=== PATIENT | female | born 1930 | race Caucasian/White ===

== ENCOUNTER 2018-02-23 04:11 | Inpatient (IN) ==
--- NOTE | 2018-02-16 09:46 | EKG Report ---
Test Performed on : 02/16/2018 09:30:55 AM Test Reason : PRE SURGERY Blood Pressure : / mmHG Vent. Rate : 070 BPM Atrial Rate : 070 BPM P-R Int : 138 ms QRS Dur : 076 ms QT Int : 412 ms P-R-T Axes : 039 010 014 degrees QTc Int : 444 ms Normal sinus rhythm. Normal ECG No previous ECGs available Confirmed by Adelita CAMACHO, [place] ([id number]) on 02/16/2018 5:35:47 PM
[2018-02-16 11:04] LABS: BASO# 0.05 X1000 (0.0-0.2); BASO% 0.6 % (0.0-0.8); EOS# 0.13 X1000 (0.0-0.7); EOS% 1.5 % (0.0-10.0); HEMATOCRIT 40.1 % (37.0-47.0); HEMOGLOBIN 13.1 g/dL (12.0-16.0); LYMPH# 2.86 X1000 (1.2-3.4); MCH 31.9 PG (27-31); MCHC 32.7 g/dL (33-37); MCV 97.6 FL (81-99); MONO# 1.01 X1000 (0.11-0.59); MPV 9.9 FL (7.4-10.4); NEUT# 4.35 X1000 (1.4-6.5); NEUT% 51.9 % (42.2-75.2); PLT 232 X1000 (130-400); RBC 4.11 XMIL (4.2-5.4); RDW 12.7 % (11.5-14.5)
[2018-02-16 11:09] LABS: INR 0.97; PROTIME 13.7 Seconds (11.0-16.0)
[2018-02-16 11:10] LABS: PTT 30.2 Seconds (22.3-41.8)
[2018-02-16 12:01] LABS: AGAP 12; BUN 19 mg/dL (8-22); CALCIUM 9.5 mg/dL (8.8-10.2); CHLORIDE 105 mmol/L (98-107); COSMO 290; CREATININE 0.8 mg/dL (0.5-0.9); ESTIMATED GFR > 60; GLUCOSE 112 mg/dL (70-104); POTASSIUM 4.6 mmol/L (3.5-5.1); SODIUM 144 mmol/L (136-145); TCO2 27 mmol/L (25-35)
[2018-02-23] MEDS ORDERED: REGLAN ONE (08:19)
[2018-02-23] MEDS ORDERED: COLACE ONE (08:19)
[2018-02-23] MEDS ORDERED: KEFZOL 1 GM/D5W 1 GM/50 ML IVPB ONE (08:19)
[2018-02-23] MEDS ORDERED: CELEBREX ONE (08:19)
[2018-02-23] MEDS ORDERED: LYRICA ONE (08:19)
[2018-02-23] MEDS ORDERED: PEPCID ONE (08:19)
[2018-02-23] MEDS ORDERED: LR 1,000 ML ONE (08:20)
[2018-02-23] MEDS ORDERED: QUELICIN (DOSE) ONE (08:37)
[2018-02-23] MEDS ORDERED: DIPRIVAN 1% ONE (08:37)
[2018-02-23] MEDS ORDERED: XYLOCAINE-MPF 2% ONE (08:37)
[2018-02-23] MEDS ORDERED: TORADOL ONE (09:34)
[2018-02-23] MEDS ORDERED: DURAMORPH ONE (09:34)
[2018-02-23] MEDS ORDERED: SENSORCAINE-MPF 0.5%/EPI 1:200,000 ONE (09:35)
[2018-02-23] MEDS ORDERED: SODIUM CHLORIDE 0.9% ONE (09:35)
[2018-02-23] MEDS ORDERED: NEOSPORIN G.U. IRRIGANT ONE (09:35)
[2018-02-23] MEDS ORDERED: EXPAREL 1.3% ONE (09:35)
[2018-02-23] MEDS ORDERED: CYKLOKAPRON 1,000 MG/NS 1,000 MG/100 ML IVPB ONE (09:35)
[2018-02-23] MEDS ORDERED: ROBINUL ONE ×2 (10:13→11:16)
[2018-02-23] MEDS ORDERED: OFIRMEV 1000 MG/ISOTONIC SOLN 1,000 MG/100 ML BOTTLE ONE (10:16)
[2018-02-23] MEDS ORDERED: DILAUDID ONE (10:34)
[2018-02-23] MEDS ORDERED: DECADRON ONE (10:43)
[2018-02-23 10:46] LABS: URINE SOURCE CATH
[2018-02-23 10:50] LABS: BILIRUBIN URINE NEGATIVE (NEGATIVE); BLOOD URINE NEGATIVE (NEGATIVE); COLOR STRAW; GLUCOSE URINE NEGATIVE (NEGATIVE); KETONE URINE NEGATIVE (NEGATIVE); LEUKOCYTES URINE NEGATIVE (NEGATIVE); NITRITE URINE NEGATIVE (NEGATIVE); PROTEIN URINE NEGATIVE (NEGATIVE); TURBIDITY URINE CLEAR (CLEAR); UROBILINOGEN URINE NORMAL (NORMAL)
[2018-02-23 10:51] LABS: UR EPITHELIAL CELLS <10 /HPF (<10); URINE BACTERIA NEGATIVE /HPF; URINE RBC <10 /HPF (<10); URINE WBC <10 /HPF (<10)
[2018-02-23] MEDS ORDERED: NEOSTIGMINE ONE (11:17)
[2018-02-23] MEDS ORDERED: ZOFRAN ONE (11:26)
--- NOTE | 2018-02-23 11:48 | OPERATIVE NOTE ---
PROCEDURE DATE: 02/23/2018 PREOPERATIVE DIAGNOSIS: Left glenohumeral arthritis. POSTOPERATIVE DIAGNOSIS: Left glenohumeral arthritis. PROCEDURE PERFORMED: Left reverse total shoulder arthroplasty with DePuy Delta XTEND size 12 press-fit stem, a 38+ 3 humeral cup, a 38 eccentric Glenosphere, and a standard Metaglene. SURGEON: Blayne Vang M.D. TAIL DOGGER: Caitie Parham. SECOND CLIENT ENGAGEMENT MANAGER: Carlos Tam. ANESTHESIA: General. IV FLUIDS: 1000 mL of lactated Ringer. ESTIMATED BLOOD LOSS: 200 mL. COMPLICATIONS: None. INDICATION: The patient is an 87-year-old female with a chronic history of pain and discomfort of the left shoulder. Continues with pain and discomfort despite appropriate nonoperative treatment. X-rays revealed significant degenerative arthritis, and recommendation is to proceed with left reverse total shoulder arthroplasty. This was offered. Risks and benefits of surgery were explained, including the risks of anesthesia, , bleeding, infection, failure to relieve pain, postoperative stiffness, nerve injury, blood clots, and other imponderables. All questions were answered, and the patient and family wish to proceed with surgery. DESCRIPTION OF PROCEDURE: The patient was taken to the operating room and placed supine on the operating table. Once adequate anesthesia was obtained, the patient was placed in semi-Méndez beach-chair position. The left shoulder was subsequently prepped and draped in the usual sterile fashion. A standard deltopectoral incision was made with a skin knife. Hemostasis was obtained using electrocautery. The deltopectoral interval was then developed. Partida retractors were placed to elevate the conjoined tendon as well as the deltoid, and the cephalic vein was retracted laterally with the deltoid. Approximately 1 cm medial to the subscapularis tendon insertion, it was released. A stay suture was placed medial to the release. After this had been performed, attention was then turned to the proximal humerus. A starting reamer was passed in the intramedullary canal. After adequate reaming had been conducted, an intramedullary guide with a proximal humeral cutting block was placed in position. The humeral head was resected. A protective disk was placed. Attention was turned to the glenoid. Circumferential dissection was performed with a deep knife. A guide was then placed in position to identify the position of the guide pin. This was then placed. Reaming was then conducted. The central hole was then dilated. The wound was copiously with antibiotic pulsatile lavage. A standard Metaglene was then placed. Two locking screws were placed and two nonlocking screws. Good purchase was obtained. A 38 eccentric Glenosphere was then placed with eccentricity placed inferiorly. Attention was then turned to the proximal humerus, where an intramedullary guide was placed in position, and the proximal humerus was then reamed. The wound was copiously irrigated with antibiotic pulsatile lavage. A size 12 press-fit stem was then placed and appeared to have good fit. Trial cup size was then determined to be 38+ 3, and had excellent stability and range of motion. Trial cup was removed. The wound was copiously irrigated once again. A 38+ 3 humeral cup was then placed. The shoulder was reduced, carried through range of motion, and had excellent stability and range of motion. Exparel was placed in the deep soft tissue. The wound was copiously irrigated once again. A #2 FiberWire was then used to repair the subscapularis tendon. The remaining portion of the Exparel was placed in the deep tissue as well as subcutaneous tissue. Final irrigation was then performed. A 2-0 Vicryl was then used to repair the subcutaneous tissue, followed by running 2-0 Prolene. Benzoin and Steri-Strips were applied. Adaptic, sterile gauze, ABD pad, and tape were applied to the left shoulder, followed by a shoulder immobilizer. All counts were correct, and the patient tolerated the procedure well and was transferred to the recovery room in stable condition. cc: Blayne Vang MD
[2018-02-23] MEDS ORDERED: MORPHINE ONE (12:19)
[2018-02-23] MEDS ORDERED: NS 1,000 ML ONE (12:35)
--- NOTE | 2018-02-23 12:38 | Diag Imaging Result Doc PS360 ---
EXAM: SHOULDER 1 VIEW LEFT 02/23/2018 HISTORY: L reverse total shoulder TECHNIQUE: AP portable at 1219 COMMENT: There is a total shoulder arthroplasty. There is no evidence of fracture or other acute bony abnormality. IMPRESSION: Postsurgical changes. Electronically signed by Juan Kennedy 02/23/2018 12:35 PM
[2018-02-23] MEDS ORDERED: AMBIEN PO PRN (13:04)
[2018-02-23] MEDS ORDERED: LEXAPRO PO PRN (13:04)
[2018-02-23] MEDS ORDERED: CENTRUM TABLET PO SCH (13:15)
[2018-02-23] MEDS ORDERED: OXY IR PO PRN ×2 (14:45)
[2018-02-23] MEDS: NS 1,000 ML IV SCH (14:45)
[2018-02-23] MEDS ORDERED: ZOFRAN PO PRN (14:45)
[2018-02-23] MEDS ORDERED: CYKLOKAPRON 1,000 MG in NS 100 ML IV ONE (16:00)
[2018-02-23] MEDS: KEFZOL 1 GM/D5W 1 GM/50 ML IVPB IV SCH (17:19)
[2018-02-23] MEDS ORDERED: NORVASC PO SCH (21:00)
[2018-02-23] MEDS ORDERED: EXFORGE 5/160 PO SCH (21:00)
[2018-02-23] MEDS ORDERED: DIOVAN PO SCH (21:00)
[2018-02-23] MEDS: PERIDEX MT SCH (23:41)
[2018-02-24] MEDS: KEFZOL 1 GM/D5W 1 GM/50 ML IVPB IV SCH (03:13)
[2018-02-24] MEDS: NS 1,000 ML IV SCH (04:25)
[2018-02-24 05:58] LABS: HEMATOCRIT 31.6 % (37.0-47.0); HEMOGLOBIN 10.3 g/dL (12.0-16.0)
--- NOTE | 2018-02-24 06:43 | PROGRESS NOTE ---
DATE: 02/24/2018 SUBJECTIVE: The patient is a pleasant, 87-year-old female who is 1 day status post left reverse shoulder arthroplasty. She is currently resting comfortably. PHYSICAL EXAMINATION: On physical examination of the patient's left upper extremity, the dressing is intact. She is able flex and extend all her fingers. Good capillary refill distally. Good lining mechanic strength. LABORATORY DATA: Her hemoglobin is 10.3, hematocrit is 31.6. IMPRESSION: Postoperative day #1 status post left reverse shoulder arthroplasty. PLAN: At this point, we will change her dressing, discontinue her Caputo, and Hep-Lock her IV. We will plan on discharging her home later today. We will arrange for home physical therapy. cc: Blayne Vang MD
[2018-02-24] MEDS ORDERED: PRILOSEC PO SCH (07:00)
[2018-02-24 07:24] VITALS: BP 123/58
[2018-02-24] MEDS ORDERED: BLISTEX MEDICATED BERRY LIP BALM TOP ONE (07:31)
[2018-02-24 07:34] LABS: CALCIUM 9.3 mg/dL (8.8-10.2); CREATININE 0.9 mg/dL (0.5-0.9); POTASSIUM 4.6 mmol/L (3.5-5.1)
[2018-02-24] MEDS ORDERED: CRESTOR PO SCH (09:00)
[2018-02-24] MEDS ORDERED: COENZYME Q10 PO SCH (09:00)
[2018-02-24] MEDS ORDERED: ASPIRIN PO SCH (09:00)
[2018-02-24] MEDS ORDERED: VITAMIN D PO SCH (09:00)
[2018-02-24] MEDS ORDERED: SYNTHROID PO SCH (09:00)
[2018-02-24] MEDS: PERIDEX MT SCH (09:37)
== END 2018-02-24 12:18 | disposition home health service (06) | DRG 483 ==
LOC: SURHOLD 04:11 → 4N 10:26
PROVIDERS: ADMIT Orthopaedic Surgery Adult Reconstructive Orthopaedic Surgery; ATTEND Orthopaedic Surgery Adult Reconstructive Orthopaedic Surgery
CPT/HCPCS: 73020; 80048; 81001; 85014; 85018; 85025; 85610; 85730; 86850; 86900; 86901; 88305; 88311; 93005; 93010; 94761; 94799; 97116; 97162; 97530; A9270; C9290; J0131; J0330; J0690; J1100; J1170; J1885; J2270; J2274; J2275; J2405; J7030; J7120; Q9974